=== PATIENT | female | born 1995 | race Caucasian/White ===

== ENCOUNTER 2017-06-04 11:50 | Emergency (ER) | payer SELFPAY ==
[~2017-06-04] VITALS: Ht 167.6 cm; Wt 56.4 kg
[~2017-06-04 11:50] MED LIST: BCP; COLACE100 MG PO; IBUPROFEN800 MG PO; MOTRIN800 MG PO; OXYCODONE-ACET1 EACH PO; PRENATAL TABLE1 EAC3 PO
[2017-06-04 12:58] LABS: HEMATOCRIT 40.4 % (36.0-46.0); MCH 29.3 PG (29.0-34.0); MCHC 33.2 G/DL (30.0-36.0); MCV 88.4 FL (83-99); MEAN PLAT.VOLUME 8.6 uM^3 (9.5-12.4); PLATELET COUNT 244 K/uL (156-360); RED BLOOD COUNT 4.57 M/uL (3.80-5.20); WHITE BLOOD COUNT 5.9 K/uL (4.1-10.2)
[2017-06-04 13:10] LABS: CHLORIDE 107 mEq/L (99-109); POTASSIUM 4.1 mEq/L (3.7-5.4); SODIUM 137 mEq/L (136-147)
[2017-06-04 13:12] LABS: GLUCOSE 95 mg/dL (70-99)
[2017-06-04 13:14] LABS: ANION GAP 6 MEQ/L (2-14); TOTAL BILIRUBIN 0.3 mg/dL (0.0-1.0)
[2017-06-04 13:16] LABS: ALKALINE PHOSPHATASE 47 IU/L (3-129); GFR ESTIMATE (CALCULATED) > 59 mL/min/
[2017-06-04 13:17] LABS: UREA NITROGEN (BUN) 9 mg/dL (9-23)
[2017-06-04 13:28] LABS: QUANTITATIVE HCG < 4.0 MIU/ML
[2017-06-04 16:02] LABS: ADD MIUA? NO; BILIRUBIN NEGATIVE; BLOOD NEGATIVE; COLOR YELLOW ((YELLOW)); GLUCOSE (STRIP) NEGATIVE; KETONES NEGATIVE; LEUKOCYTES NEGATIVE; NITRITE NEGATIVE; PROTEIN (STRIP) NEGATIVE; UCUL ADDED? NO; UROBILINOGEN 0.2 MG/DL (0.2-1.0)
[2017-06-04 16:10] VITALS: BP 00/0
== END 2017-06-04 16:54 | disposition left against medical advice (07) ==
LOC: EME 11:50
PROVIDERS: Nurse Practitioner Family
DX: R10.31 Right lower quadrant pain (principal); R30.0 Dysuria; Z87.442 Personal history of urinary calculi; F17.200 Nicotine dependence, unspecified, uncomplicated; F32.9 Major depressive disorder, single episode, unspecified; Z88.2 Allergy status to sulfonamides
CPT/HCPCS: 74177; 80053; 81003; 84702; 85027; 99281; 99284; J7030